=== PATIENT | female | born 1980 | race Two or more races ===

== ENCOUNTER 2024-02-21 09:49 | Outpatient (RCR) | payer MEDICAID, SELFPAY ==
--- NOTE | 2024-02-21 10:05 | PTNOTE_ITS ---
PT OP Initial Eval Patient Information Outpatient Physical Therapy Treatment Date: 02/21/24 Visit Reasons: Lumbar region Medical Diagnosis: M51.26 Start of Care: 02/21/24 Date of Onset: 5 yrs ago Smoking Status Smoking Status: Former smoker Tobacco Use: Cigarette Years smoked: 5 Initial Assessment Subjective: Pt is 43 yr old female who reports long Hx of LBP that radiates down the L LE. Increased pain with laying on her side, prolonged sitting, walking and bending. She ambulates with a cane due to L LE weakness that hermes when she walks. PMH: HTN, thyroidism, bladder incontinence x2 yrs Imaging: MRI of L/s L5-S1 9 mm central lumbar disc bulge displacing both the right and left S1 nerve, roots, L4-L5 6 mm central lumbar disc bulge Pt goal: not sure since therapy didn't help last time Objective: Trunk ArOM: ? B SB 50% of normal with pain ? Extension: 10% with pain around L4-5, L5-S1 ? Flexion: 15 from floor with LBP ? B rotation: 60% with pain ? Gait: antalgic ? TTP: high of paraspinals L5-S1 ? Neuro: B SLR: positive Assessment: Pt presents with high tissue irritability of L/S and pain radiating into the L LE with positive SLR testing B. Pt doesn't tolerate trunk extension due to pain and has limited trunk ROM consistent with MRI results of anteriolisthesis and bulging disks. Pt has bladder incontinence which is a red flag. She will not likely benefit from skilled therapy due to severity of ssx and likely have more pain with therapy interventions. PT recommends neurologist consultation. Short Term and [facility] Goals Eval and D/C Treatment Plan Eval and D/C Certification Dates: 02/21/24 to 03/22/24 Procedure Charges OP PT Eval Mod Complex 30 minutes: Yes
== END 2024-03-19 23:59 | disposition home or self-care (01) ==
LOC: CPTX 09:49
PROVIDERS: PCP Registered Nurse; Referring Provider Registered Nurse; Visit Provider Registered Nurse
DX: M51.362 Other intervertebral disc degeneration, lumbar region with discogenic back pain and lower extremity pain (principal); R53.1 Weakness; R26.2 Difficulty in walking, not elsewhere classified
CPT/HCPCS: 97162

== ENCOUNTER → 2024-03-14 | Outpatient (CLI) | payer MEDICAID, SELFPAY ==
--- NOTE | 2024-03-14 13:30 | XR_ITS ---
Examination: Ultrasound soft tissue left lower leg TECHNIQUE: High-resolution grayscale sonographic images soft tissue left lower leg Exam date and time: March 14, 2024 1448 hours INDICATIONS: Left upper inner calf palpable lump one year FINDINGS: No cystic or solid mass noted IMPRESSION: No cystic or solid mass noted, consider MRI lower extremity without contrast follow-up
== END | disposition home or self-care (01) ==
LOC: CDIM 14:08
PROVIDERS: Referring Provider Registered Nurse; Visit Provider Registered Nurse
DX: R22.42 Localized swelling, mass and lump, left lower limb (principal); R22.0 Localized swelling, mass and lump, head
CPT/HCPCS: 76882

== ENCOUNTER → 2024-07-26 | Outpatient (CLI) | payer MEDICAID, SELFPAY ==
--- NOTE | 2024-07-26 09:45 | XR_ITS ---
Examination: MRI lumbar spine without contrast Date and time of exam: July 26, 2024 0959 hours Comparison February 27, 2023 Technique: Multiple MRI axial and sagittal sections lumbar spine. Sagittal T2-weighted images, TR 3500, TE 118 severe pain limited study due to single sagittal set of images Findings: Grade 1 anterolisthesis L5 on S1 Significant disc narrowing posteriorly L5-S1 I do not have axial images for comparison L5-S1 7 mm central lumbar disc bulge extending to the foraminal regions with mild bilateral L5 ganglionic compression L4-L5 5 mm central lumbar disc bulge IMPRESSION: L5-S1 7 mm central lumbar disc bulge with mild bilateral L5 ganglionic compression L4-L5 5 mm central lumbar disc bulge
== END | disposition home or self-care (01) ==
LOC: SMRI 09:28
PROVIDERS: PCP Registered Nurse; Referring Provider Registered Nurse; Visit Provider Registered Nurse
DX: M51.26 Other intervertebral disc displacement, lumbar region (principal); M51.379 Other intervertebral disc degeneration, lumbosacral region without mention of lumbar back pain or lower extremity pain; G95.29 Other cord compression
CPT/HCPCS: 72148

== ENCOUNTER 2024-08-04 10:45 | Emergency (ER) | payer MEDICAID, SELFPAY ==
[2024-08-04] MEDS: HYDROcodone/APAP 5/325 TABLET 1 TAB PO (11:20)
[2024-08-04] MEDS: KETOROLAC INJ 30 MG/ML VIAL IM (11:20)
== END 2024-08-04 11:00 | disposition home or self-care (01) ==
PROVIDERS: Emergency Provider Emergency Medicine; PCP Registered Nurse; Referring Provider Emergency Medicine
DX: M54.9 Dorsalgia, unspecified (principal); G89.29 Other chronic pain
CPT/HCPCS: 96372; 99283; J1885; A9270

== ENCOUNTER → 2024-09-13 | Outpatient (CLI) | payer MEDICAID, SELFPAY ==
--- NOTE | 2024-09-13 | XR_ITS ---
Examination: Knee bilateral, 6 views Technique: Knee AP, lateral, oblique each knee total 6 views Date and time of exam: September 13, 2024 0924 hours INDICATIONS: Patient fell 2 days ago with injury to both knees, bilateral knee pain. FINDINGS: No fracture or dislocation involving either knee No opaque foreign bodies IMPRESSION: No fracture or dislocation involving either knee
--- NOTE | 2024-09-13 | XR_ITS ---
Examination: Lumbar spine, 5 views Technique: Lumbar spine AP, lateral, coned lateral lower lumbar spine, bilateral obliques 5 views Exam date and time: September 13, 2024 0924 hours INDICATIONS: Patient fell 2 days ago with injury to the lower back, lower back pain. FINDINGS: Moderate osteopenia. No acute lumbar fracture Moderate to advanced disc narrowing L5-S1 IMPRESSION: No lumbar fracture
--- NOTE | 2024-09-13 08:33 | XR_ITS ---
Examination: Thoracic spine 3 views Technique one AP lateral coned lateral upper dorsal spine 3 views Date and time: September 13, 2024 0917 hours INDICATIONS: Patient fell 2 days ago with injury to the back, back pain FINDINGS: Mild kyphosis dorsal spine No acute thoracic fracture Chronic appearing osteoporotic compression T3 Upper thoracic dextroscoliosis 16 degrees lower thoracic levoscoliosis 15 degrees IMPRESSION: Chronic appearing osteoporotic compression T3 but clinical correlation advised If pain persists, consider CT thoracic spine without contrast follow-up
--- NOTE | 2024-09-13 08:33 | XR_ITS ---
Examination: Ribs, bilateral, with PA chest, 5 views Technique: Chest PA, RIBS AP, RPO, LPO, AP coned lower ribs 5 views Exam date and time: September 13, 2024 0917 hours INDICATIONS: Patient fell 2 days ago with injury to the right and left chest bilateral rib pain Findings: Normal heart size. No pneumothorax Moderate osteopenia Suspicious for nondisplaced fracture posterior right eighth rib IMPRESSION: No pneumothorax pulmonary contusion or hemothorax Suspicious for nondisplaced fracture right eighth rib posteriorly, clinical correlation advised
== END | disposition home or self-care (01) ==
PROVIDERS: PCP Registered Nurse; Referring Provider Physician Assistant; Visit Provider Physician Assistant
DX: G95.29 Other cord compression (principal); S29.9XXA Unspecified injury of thorax, initial encounter; S89.92XA Unspecified injury of left lower leg, initial encounter; S89.91XA Unspecified injury of right lower leg, initial encounter; S39.92XA Unspecified injury of lower back, initial encounter; W19.XXXA Unspecified fall, initial encounter
CPT/HCPCS: 71111; 72072; 72110; 73562

== ENCOUNTER 2025-01-07 12:44 | Emergency (ER) | payer MEDICAID, SELFPAY ==
[2025-01-07 12:45] VITALS: BMI 27.8
[2025-01-07 13:10] VITALS: BP 173/117; BP 176/118; PULSE 88; RESP 17; TEMP 37.3; O2SAT 96
[2025-01-07 13:13] VITALS: BP 165/121; PULSE 87; RESP 18; TEMP 37.4; O2SAT 98
--- NOTE | 2025-01-07 13:17 | EKG_ITS ---
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
--- NOTE | 2025-01-07 13:17 | PD.EDRME ---
Rapid Medical Screening Exam RME Arrival date/time: 01/07/25 12:44 44-year-old female with a history of hypertension presents to the emergency room with a chief complaint of a headache, chest pain, and bleeding in the left eye x 2 days I have greeted and performed a focused initial assessment of this patient. A comprehensive ED assessment and evaluation of the patient, analysis of all test results, and completion of the medical decision making process will be conducted by additional ED providers. Chief Complaint: Back Pain/Injury Vital signs: Vital Signs Temperature 99.4 F 01/07/25 13:13 Pulse Rate 87 01/07/25 13:13 Respiratory Rate 18 01/07/25 13:13 Blood Pressure 165/121 H 01/07/25 13:13 Pulse Oximetry (%) 98 01/07/25 13:13 Oxygen Delivery Method Room Air 01/07/25 13:13 Vital signs reviewed by provider: Yes
[2025-01-07 13:27] VITALS: BP 165/121; PULSE 87
[2025-01-07] MEDS: HYDROcodone/APAP 5/325 TABLET 1 TAB PO (13:27)
== END 2025-01-08 00:05 | disposition left against medical advice (07) ==
LOC: SERX 13:32
PROVIDERS: Emergency Provider Emergency Medicine
DX: Z53.21 Procedure and treatment not carried out due to patient leaving prior to being seen by health care provider (principal)
CPT/HCPCS: 80053; 80307; 81001; 83735; 83880; 84484; 85025; 85610; 85730; 93005; 99281; A9270